=== PATIENT | female | born 1985 | race Two or more races ===

== ENCOUNTER 2017-05-02 12:20 | Inpatient (IN) | payer OTHER ==
[2017-05-02 12:49] VITALS: BMI 37.3
[2017-05-02] MEDS ORDERED: Phenaphthazine-PH Test Paper VI ONE (15:17)
[2017-05-02 15:45] LABS: HEMATOCRIT 39.7 % (34.0-47.0); MEAN CELL VOLUME 84.7 fl (81.0-99.0); MEAN CORPUSCULAR HGB CONC 31.9 g/dL (33.0-37.0); RED CELL DISTRIBUTION WIDTH 16.7 % (11.5-14.5); WHITE BLOOD COUNT 9.2 K/uL (4.8-10.8)
--- NOTE | 2017-05-02 17:06 | OBADHP ---
Datetime: 05/02/2017 16:49 IP Chief Complaint Other: oligohydramnios IP Adm Impression Other: IOL per Dr. White for oligohydramnios Admit Comment, IP Provider: 32y/o at 36 wks based on 1st TM u/s sent in from u/s unit for oligohydra mnios for IOL. Patient reports +fm, no lof, no vb, no ctx. PNC: Dr. Castillo PNI: 1. positive first trimester screen for T21 and T18, s/p amniocentesis which was negative 2. GCT+/GTT neg 62/138/140/126 3. growth u/s 04/24/17 showed HC/AC/Humerus 3% EFW 15% with 1 week lag, EFW 2074g 4. u/s today RAMANDEEP 3.9, otherwise bpp wnl, cephalic, ant placenta PNL: O+, rpr nr/hiv neg both in 3rd TM, gc/chl neg, rubella non immune, hbsag neg Pmhx: denies pgynhx: denies any sti or abn pap Pshx: denies Meds: pnv All: nkda Social hx: denies toxic habits x 3, denies DV, homemaker ROS: neg cp/sob, neg abd pain/n/v/d, neg fever, neg chills, neg rash Exam: see above A/P: 36wks with oligohydramnios RAMANDEEP 3.9, latest efw showing lag x 1week and HC/AC/H 3%. 1. Admit: regular diet for dinner, IVF, labs: CBC, T_S, rpr and hiv done in 3rd TM 2. IOL: start with cervidil at 7p 3. GBS unknown, perineal/rectal swab done by me, once in active labor give penicillin for gbs prop hylaxis 4. elevated BP on admission, no signs or sx of hypertensive d/o, monitor and if continues to be el evated check PEC labs 5. rubella nonimmune, immunization 6. anticipate 7. patient seen and examined with Dr. Storey, care plan discussed with her. Pelvic Type - PN: Not Done Extremities - PN: Normal Abdomen - PN: Normal Back - PN: Normal Breast - PN: Normal Lungs - PN: Normal Heart - PN: Normal Thyroid - PN: Normal Neurologic - PN: Normal HEENT - PN: Normal General - PN: Normal Weight - Estimated: 2300 Presentation-Admit: Vertex FHR - Baseline A Provider: 120 Membranes, Provider: Intact Contraction Comments Provider: irregular, patient doesn't feel them Comments, ACOG Physical Exam: SSE: no pooling, no fluid with valsalva, neg nitrazine, closed Pool Provider: Negative Nitrazine Provider: Negative IP Hx Assessment: The History has been Reviewed and is Current Vital Signs Provider: Reviewed; Within Normal Limits Vital Signs Provider Details: occasional BP 140/87 NICHD Variability Prov Fetus A: Moderate 6-25bpm NICHD Accel Fetus A IP Provider: [id number] FHR Category Provider Fetus A: Category I NICHD Decel Fetus A IP Provider: None Dilatation, Provider: 0 Genitourinary Exam: Normal DTRs - PN: Normal IP Adm Impression: , intrauterine ; Intact Membranes IP Admit Plan: Admit to unit; Initiate labor induction protocol Dr Signature: Rossy Correia MD
[2017-05-02] MEDS: Lactated Ringer's 1,000 ML IV SCH (17:44)
[2017-05-02] MEDS: Betamethasone Soluspan 30 mg/5mL Inj Susp IM SCH (17:51)
[2017-05-02 19:37] VITALS: O2SAT 100
[2017-05-02] MEDS ORDERED: Penicillin G Potassium 2.5 MU in Sodium Chloride 0.9% 100 ML IVPB SCH (21:00)
--- NOTE | 2017-05-02 22:59 | OBPN ---
Datetime: 05/02/2017 22:53 IP Progress Impression: Reassuring heart rate IP Informed Consent Obtain: Induction of Labor IP Progress Plan: Induction; Cervical Ripening FHR - Baseline A Provider: 130 IP Progress Note Comment: s: no c/o i: 36wk induction p: cervidel placed. Vital Signs Provider: Reviewed NICHD Accel Fetus A IP Provider: 15X15 FHR Category Provider Fetus A: Category I NICHD Variability Prov Fetus A: Moderate 6-25bpm Dilatation, Provider: 0 Effacement, Provider: 0 Station, Provider: -3 NICHD Decel Fetus A IP Provider: None Datetime: 05/02/2017 16:49 Pool Provider: Negative Nitrazine Provider: Negative Membranes, Provider: Intact Contraction Comments Provider: irregular, patient doesn't feel them Weight - Estimated: 2300 Presentation-Admit: Vertex Vital Signs Provider Details: occasional BP 140/87
[2017-05-03] MEDS ORDERED: Nalbuphine 20 mg/ml Inj (1 ml) IVP PRN (00:22)
[2017-05-03] MEDS: Lactated Ringer's 1,000 ML IV SCH ×2 (00:49→14:16)
[2017-05-03] MEDS ORDERED: Promethazine 12.5 MG in Sodium Chloride 0.9% 50 ML IVPB ONE (17:07)
[2017-05-03] MEDS: Betamethasone Soluspan 30 mg/5mL Inj Susp IM SCH (17:41)
[2017-05-03] MEDS ORDERED: Penicillin G 5 Million Unit Vial IVPB ONE (19:26)
[2017-05-03] MEDS ORDERED: Fentanyl/Bupivacaine HCl 0 ML EPI ONE (19:42)
[2017-05-03] MEDS ORDERED: Bupivacaine HCl 0.25% PF (10 ml) Inj ONE (19:42)
[2017-05-03] MEDS ORDERED: Lidocaine 1% Inj (20ml) ONE (19:48)
[2017-05-03] MEDS ORDERED: Oxytocin 30 units/LR 500ML 30 U/500 ML BAG IV ONE (19:49)
[2017-05-03] MEDS ORDERED: Oxycodone/Acetaminophen 5/325 mg Tab PO PRN ×4 (20:27→21:20)
--- NOTE | 2017-05-03 20:48 | OBDS ---
MATERNAL INFORMATION Provider Comments: Delivered a live baby girl at 7:56 PM the baby was bulb suctioned on the perineum and transferred to the maternal chest. The cord was clamped and cut and 3 vessels noted blood was ob tained and sent to the lab. The placenta was delivered at 7:59 PM intact. The estimated blood loss wa s 150 mL. There was a second-degree laceration which was repaired with 2-0 Rapide. The mother tolerat ed the procedure well and went to the well baby nursery with Apgars of 9 and 9 weighing 2085 g LABOR SUMMARY EDC: 05/30/2017 00:00 No. Babies in Womb: 1 LABOR INFORMATION Cervical Ripening Agents: Cytotec @ 50 Group B Beta Strep: Done, Result Unknown VAGINAL DELIVERY Episiotomy: None Laceration Extension: Second Degree Laceration Type: Vaginal Laceration Repair: Yes Sponge Count Correct: Yes Sharps Count Correct: Yes PRESENTATION/POSITION BABY A Presentation: Cephalic
[2017-05-04 08:24] LABS: HEMATOCRIT 35.8 % (34.0-47.0); MEAN CELL VOLUME 84.8 fl (81.0-99.0); MEAN CORPUSCULAR HEMOGLOBIN 26.6 pg (27.0-31.0); MEAN CORPUSCULAR HGB CONC 31.3 g/dL (33.0-37.0); RED CELL DISTRIBUTION WIDTH 16.2 % (11.5-14.5); WHITE BLOOD COUNT 16.1 K/uL (4.8-10.8)
[2017-05-04] MEDS ORDERED: Pneumococcal 23-Valent Vaccine IM ONE (09:11)
[2017-05-04] MEDS ORDERED: Influenza Vaccine 18yr & older 0.5 ML/45 MCG SYR IM ONE (09:18)
--- NOTE | 2017-05-05 09:40 | OBPPN ---
Datetime: 05/05/2017 09:36 PP Pain Prov: Within normal limits PP Nausea Prov: Denies PP Flatus Prov: Yes PP Breasts Prov: Not Done PP Heart Prov: Normal PP Lungs Prov: Normal PP Abdomen/Uterus Prov: Normal PP Lochia Prov: Not Done PP Vulva/Perineum Prov: Not Done PP CVA Tenderness Prov: Normal PP Extremities Prov: Normal PP Progress Prov: Normal PP Impression Prov: Normal progression PP Progress Note Prov: Patient doing well ambulating and voiding without difficulty reports minimal discomfort minimal lochia Vital signs stable afebrile Uterus firm below the umbilicus Extremities no Homans day #2 Patient cleared for discharge No intercourse No heavy lifting Follow-up in 4-6 weeks Motrin as needed Vital Signs Provider PP: Reviewed
--- NOTE | 2017-05-05 09:40 | OBDCSUM ---
Datetime: 05/05/2017 09:37 Discharged to, Provider: Home Follow up at, Provider: Rosario Molina Instr Activity: Normal activity Disch Instr Diet: Regular Discharge Instructions, Provider: Routine instructions given Discharge Diagnosis, Provider: Term Delivered Follow up in weeks, Provider: 6 weeks Disch Referrals: None Contraception discussed, Prov: Yes Disch Activity Restrictions: No sexual activity; Nothing in vagina - [place], tampons, douche Discharge Comment, Provider: doing well Contraception after Delivery: Undecided
[2017-05-05] MEDS ORDERED: Measles, Mumps, and Rubella 0.5 ML VIAL SC ONE (11:00)
[2017-05-05 21:11] VITALS: BP 137/85; PULSE 75; RESP 20; TEMP 97.8
== END 2017-05-05 16:45 | disposition home or self-care (01) | DRG 775 ==
LOC: H.EROB2 12:20 → H.L&D 12:46 → H.OB/GYN 05-03 22:07
PROVIDERS: ADMIT Obstetrics & Gynecology Gynecology; ATTEND Obstetrics & Gynecology Gynecology
PROC: 4A1HXCZ Monitoring of Products of Conception, Cardiac Rate, External Approach (ICD-10-PCS; 2017-05-02)
PROC: 0KQM0ZZ Repair Perineum Muscle, Open Approach (ICD-10-PCS; principal; 2017-05-03)
PROC: 10E0XZZ Delivery of Products of Conception, External Approach (ICD-10-PCS; 2017-05-03)
DX: O41.03X0 Oligohydramnios, third trimester, not applicable or unspecified (principal); O60.14X0 Preterm labor third trimester with preterm delivery third trimester, not applicable or unspecified; O70.1 Second degree perineal laceration during delivery; Z37.0 Single live birth; Z3A.36 36 weeks gestation of pregnancy